=== PATIENT | female | born 2000 | race Caucasian/White ===

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

== ENCOUNTER → 2022-03-22 | Emergency (ER) | payer OTHER ==
[~2022-03-22] VITALS: Ht 165.1 cm; Wt 68.0 kg
[~2022-03-22] MED LIST: EMTRICITABINE-1 EACH PO; HYDROXYZINE HCL25 MG PO; KETOCONAZOLE15 GM TOP; ONDANSETRON ODT4 MG PO; ZOLOFT50 MG PO
== END ==
LOC: ED 16:13
DX: O20.9 Hemorrhage in early pregnancy, unspecified (principal); O98.811 Other maternal infectious and parasitic diseases complicating pregnancy, first trimester; B37.31 Acute candidiasis of vulva and vagina; Z87.891 Personal history of nicotine dependence; Z88.0 Allergy status to penicillin; Z79.899 Other long term (current) drug therapy; Z3A.01 Less than 8 weeks gestation of pregnancy
CPT/HCPCS: 36415; 76801; 76817; 81001; 84702; 84703; 85025; 86900; 86901; 87088; 99284-25

== ENCOUNTER 2022-11-05 20:01 | Inpatient (IN) | payer OTHER ==
[~2022-11-05] VITALS: Ht 165.1 cm; Wt 90.7 kg
[2022-11-06 02:11] VITALS: BP 141/88
--- NOTE | 2022-11-07 12:36 | PR ---
[facility] [address] [facility] [place], [place] [address] Signed PP Progress Notes Datetime Report Generated by CPChyna: 11/07/2022 12:36 SUBJECTIVE: [id number] Pain: Within Normal Limits Nausea/Vomiting: Denies Flatus: Yes Bowel Movement: Yes Vital Signs: [id number] Vital Signs: Reviewed; Within Normal Limits Cardiovascular: Normal Respiratory: Normal Abdomen/Uterus: Normal Lochia: Normal Breasts: Normal Extremities: Normal Progress: Normal Exam Comments: NAD, baby RRR No dyspnea/ retractions Abd SNTND, FFBU Ext: Trace BLLE edema IMPRESSION/PLAN/PROCEDURES: [id number] Impression: Normal Progression Plan: Continue Present Management; Discharge Progress Notes: 22 yo PPD#1 s/p uncomplicated following PROM -progressing well . Ambulating, voiding, tolerating regular diet. Pain well-controlled with ibuprofen. +Flatus, +BM. Lochia light. Clusterfeeding but otherwise well. Uncertain re: contraception plans. Requesting DC to home -HIV exposure: negative HIV screen on admission, pt has never had positive screen. Anticipate DC to home today with outpatient follow-up in 2 weeks Signing Physician: Jae Barton DO Copies: ~ *Electronically Signed* 11/07/22 1236 JAE BARTON DO PATIENT NAME: ARTURO SHEN PROGRESS NOTE DATE OF : 00 PHYSICIAN: JAE BARTON DO RPT #: [id number] REPORT IS CONFIDENTIAL AND NOT TO BE RELEASED WITHOUT AUTHORIZATION
== END 2022-11-07 16:35 | disposition home or self-care (01) | DRG 806 ==
LOC: FBCO 20:01 → FBC 20:40
PROVIDERS: ADMIT Obstetrics & Gynecology; ATTEND Obstetrics & Gynecology
PROC: 10E0XZZ Delivery of Products of Conception, External Approach (ICD-10-PCS; principal; 2022-11-05)
PROC: 00HU33Z Insertion of Infusion Device into Spinal Canal, Percutaneous Approach (ICD-10-PCS; 2022-11-05)
PROC: 3E0R3BZ Introduction of Anesthetic Agent into Spinal Canal, Percutaneous Approach (ICD-10-PCS; 2022-11-05)
DX: O42.12 Full-term premature rupture of membranes, onset of labor more than 24 hours following rupture (principal); O98.52 Other viral diseases complicating childbirth; Z37.0 Single live birth; O99.824 Streptococcus B carrier state complicating childbirth; B00.9 Herpesviral infection, unspecified; Z67.10 Type A blood, Rh positive; Z88.0 Allergy status to penicillin; Z91.018 Allergy to other foods; Z86.59 Personal history of other mental and behavioral disorders; Z20.6 Contact with and (suspected) exposure to human immunodeficiency virus [HIV]; Z3A.40 40 weeks gestation of pregnancy
CPT/HCPCS: 01960; 36415; 85025; 85027; 86850; 86900; 86901; A9270; J2590; J2795; J3490; J7121

== ENCOUNTER 2023-06-27 09:54 | Day surgery (SDC) | payer OTHER ==
[~2023-06-27] VITALS: Ht 152.4 cm; Wt 86.9 kg
--- NOTE | ~2023-06-27 | OR ---
[facility] [address] [place], [place] [address] Draft DATE OF OPERATION: 06/27/2023 SURGEON: Tomeka Alejandre MD PREOPERATIVE DIAGNOSIS: Retained products of conception. POSTOPERATIVE DIAGNOSIS: Retained products of conception. PROCEDURE: Suction dilation and curettage. ANESTHESIA: MAC. ESTIMATED BLOOD LOSS: Minimal. DRAINS: None. INDICATIONS AND FINDINGS: The patient is a 23-year-old female, who underwent a medical approximately five weeks ago. She has been troubled by intermittent heavy bleeding and passage of clots. Ultrasound showed a probable area of retained products. At the time of surgery, her uterus was approximately six week size. The os was closed. There was a moderate amount of tissue in the uterus. PROCEDURE IN DETAIL: The patient was prepped and draped in the dorsal lithotomy position. An open-sided speculum was placed. The anterior lip of the cervix was visualized and grasped with a single-tooth tenaculum. The cervix was easily dilated to a #9 dilator. #9 curved suction curette was introduced and suction curettage was done with removal of a moderate amount of tissue. Sharp curettage was done with minimal tissue found. Suction curettage was repeated and again minimal tissue found. At this point, it was felt the procedure was complete. The tenaculum was removed and there was some bleeding from the left hand tenaculum site which did not respond to pressure. A [id number]-bt-cyamm suture of 0 chromic was placed with good hemostasis noted. Speculum was removed. All sponge and needle PATIENT NAME: ARTURO SHEN OPERATIVE REPORT DATE OF : 00 REPORT #: [id number] PHYSICIAN: TOMEKA ALEJANDRE MD PCP: SAPPHIRE JARRETT DO REPORT IS CONFIDENTIAL AND NOT TO BE RELEASED WITHOUT AUTHORIZATION [address] [address] Draft counts were correct. She was taken to the recovery room in good condition. MD MILE Zazueta/STEPHANIEL /[id number] Copies: ~ PATIENT NAME: ARTURO SHEN OPERATIVE REPORT DATE OF : 00 REPORT #: [id number] PHYSICIAN: TOMEKA ALEJANDRE MD PCP: SAPPHIRE JARRETT DO REPORT IS CONFIDENTIAL AND NOT TO BE RELEASED WITHOUT AUTHORIZATION
[~2023-06-27 09:54] MED LIST changes: +DOXYCYCLINE HY100 MG PO; +FLUOXETINE HCL20 MG PO; +METRONIDAZOLE45 GM PV; +METRONIDAZOLE500 MG PO; +ONDANSETRON ODT8 MG PO; +PYRIDIUM200 MG PO
[2023-06-27 10:26] VITALS: BP 143/96
[2023-06-27 10:53] LABS: HEMATOCRIT 35.9 % (35.0-50.0); HEMOGLOBIN 12.4 g/dL (12.0-18.0); MCH 29.9 (27-36); MCHC 34.5 g/dl (30-36); MCV 86.6 fl (81-99); RBC 4.15 M/ul (4.3-5.7); RDW 13.1 (10.5-15.0)
--- NOTE | 2023-06-27 12:13 | NUR ---
06/27/23 1213 Salima Zhu PT TO PACU SLEEPING O2 VIA MASK FOGGING NOTED IN MASK.
[2023-06-27 12:30] VITALS: BP 113/83
== END 2023-06-27 12:45 | disposition home or self-care (01) ==
LOC: OPS 09:54 → DS 10:45 → OPS 10:45
PROVIDERS: ATTEND Obstetrics & Gynecology
PROC: 10D17ZZ Extraction of Products of Conception, Retained, Via Natural or Artificial Opening (ICD-10-PCS; principal; 2023-06-27 10:45)
DX: O03.4 Incomplete spontaneous abortion without complication (principal); Z87.891 Personal history of nicotine dependence
CPT/HCPCS: 36415; 85027; J0131; J0690; J1100; J1885; J2001; J2250; J2405; J2704; J2765; J3010; J7121

== ENCOUNTER 2025-02-17 21:41 | Emergency (ER) | payer OTHER ==
[~2025-02-17] VITALS: Ht 165.1 cm; Wt 80.0 kg
[~2025-02-17 21:41] MED LIST changes: +CEPHALEXIN500 M1 PO; +DIPHENHYDRAMINE25 M2 PO; +METHYLPREDNISOLO4 MG PO; +NITROFURANTOIN100 M1 PO; +PROMETHAZINE HC50 M1 PR
[2025-02-17 22:12] LABS: AMPHETAMINES, URINE NEGATIVE (NEGATIVE); BARBITURATES, URINE NEGATIVE (NEGATIVE); BENZODIAZEPINE, URINE NEGATIVE (NEGATIVE); CANNABINOID, URINE POSITIVE (NEGATIVE); COCAINE, URINE NEGATIVE (NEGATIVE); ECSTASY, URINE NEGATIVE (NEGATIVE); FENTANYL, URINE NEGATIVE (NEGATIVE); METHADONE, URINE NEGATIVE (NEGATIVE); OPIATES, URINE NEGATIVE (NEGATIVE); OXYCODONE, URINE NEGATIVE (NEGATIVE); PHENCYCLIDINE, URINE NEGATIVE (NEGATIVE)
[2025-02-17] MEDS ORDERED: IBUPROFEN 800 MG TAB PO ONE (23:00)
[2025-02-17 23:13] VITALS: BP 137/97
[2025-02-17] MEDS ORDERED: ONDANSETRON 4 MG TAB ODT SL ONE (23:15)
== END 2025-02-17 23:13 | disposition other institution, planned readmission (95) ==
LOC: ED 21:41
PROVIDERS: Internal Medicine
DX: S62.346A Nondisplaced fracture of base of fifth metacarpal bone, right hand, initial encounter for closed fracture (principal); Z87.891 Personal history of nicotine dependence; Z91.018 Allergy to other foods; Z88.0 Allergy status to penicillin; Y09 Assault by unspecified means
CPT/HCPCS: 73130; 80307; 99284; A9270